=== PATIENT | male | born 1960 | race Caucasian/White ===

== ENCOUNTER 2020-09-15 03:05 | Emergency (ER) | payer OTHER | END 2020-09-15 04:43 | disposition left against medical advice (07) | LOC: ER1 03:05 | DX: Z53.21 Procedure and treatment not carried out due to patient leaving prior to being seen by health care provider (principal) | CPT/HCPCS: 93005 ==

== ENCOUNTER 2021-10-21 20:59 | Emergency (ER) | payer OTHER ==
[2021-10-21 21:39] LABS: HEMOGLOBIN 14.8 gm/dl (14.0-17.5); RED BLOOD COUNT 5.43 M/UL (4.20-5.50); WHITE BLOOD COUNT 14.2 K/UL (4.5-11.0)
[2021-10-21 22:28] LABS: BUN/CREATININE RATIO 19 (0-10)
== END 2021-10-22 02:45 | disposition home or self-care (01) ==
LOC: ER1 20:59
PROVIDERS: Family Medicine
DX: R07.89 Other chest pain (principal); I10 Essential (primary) hypertension; F17.220 Nicotine dependence, chewing tobacco, uncomplicated; Z79.82 Long term (current) use of aspirin
CPT/HCPCS: 71045; 80053; 82550; 82553; 84484; 85025; 85379; 93005; 99285